=== PATIENT | male | born 1970 | race Two or more races ===

== ENCOUNTER 2022-05-22 15:11 | Inpatient (IN) | payer MEDICARE, OTHER ==
[~2022-05-22] VITALS: Ht 172.7 cm; Wt 74.8 kg
--- NOTE | 2022-05-22 15:43 | NUR ---
To ER bed 11, [id number] "Psych clearance/agitated and refusing meds", aaox2, breathing even and non labored, awaiting md dos santos
--- NOTE | 2022-05-22 16:09 | NUR ---
COVID SWAB DONE AND SENT TO LAB
[2022-05-22 16:17] LABS: HEMATOCRIT 38 % (39-51); HEMOGLOBIN 12.5 g/dL (13.5-17.5); LYMPHOCYTES # (AUTO) 2.5 K/uL (0.8-4.8); LYMPHOCYTES % (AUTO) 33.8 % (20.0-44.0); MEAN CORPUSCULAR HGB CONC 33 g/dl (31.0-36.0); MEAN CORPUSCULAR VOLUME 85 fL (80-96); MONOCYTES # (AUTO) 0.6 K/uL (0.1-1.30); MONOCYTES % (AUTO) 7.8 % (2.0-12.0); NEUTROPHILS # (AUTO) 4.4 K/uL (1.8-8.9); NEUTROPHILS % (AUTO) 58.4 % (43.0-81.0); PLATELET COUNT (AUTO) 196 K/uL (150-450); RED BLOOD CELL COUNT(AUTO) 4.52 MIL/uL (4.5-6.0); WHITE BLOOD COUNT (AUTO) 7.5 K/uL (4.3-11.0)
[2022-05-22 16:30] LABS: CARBON DIOXIDE 29 mmol/L (21-32); CHLORIDE 104 mmol/L (98-107); GLUCOSE 282 mg/dL (74-106); POTASSIUM 3.8 mmol/L (3.5-5.1); SODIUM SERUM 141 mmol/L (136-145); UREA NITROGEN, BLOOD 21 mg/dL (7-18)
--- NOTE | 2022-05-22 16:31 | NUR ---
URINE COLLECTED AND SENT TO LAB
[2022-05-22 16:36] LABS: ACETAMINOPHEN 0 ug/ml (10-30); ALANINE AMINOTRANSFERASE 38 U/L (12-78); ALBUMIN 3.8 g/dL (3.4-5.0); ALCOHOL, BLOOD < 3 mg/dL (0-0); ALKALINE PHOSPHATASE 99 U/L (46-116); ASPARTATE AMINOTRANSFERASE 29 U/L (15-37); BILIRUBIN,DIRECT 0.1 mg/dL (0.0-0.2); BILIRUBIN,TOTAL 0.4 mg/dL (0.2-1.0); TOTAL PROTEIN, SERUM 7.6 g/dL (6.4-8.2)
[2022-05-22 17:32] LABS: BILIRUBIN,URINE NEGATIVE (NEGATIVE); COLOR,URINE YELLOW (YELLOW); LEUKOCYTE ESTERASE ,URINE NEGATIVE (NEGATIVE); NITRITE, URINE NEGATIVE (NEGATIVE); PROTEIN,URINE NEGATIVE (NEGATIVE); UGLUCOSE 250 MG/DL mg/dL (NEGATIVE); UROBILINOGEN,URINE 0.2 EU/dL (0.2)
[2022-05-22 18:10] LABS: BACTERIA,URINE None seen /HPF (None Seen); RBC,URINE 21-50 /HPF (0-2); WBC,URINE 0-2 /HPF (0-3)
--- NOTE | 2022-05-22 18:32 | NUR ---
MOVE SHEET SUBMITTED.
--- NOTE | 2022-05-22 22:15 | NUR ---
REPORT GIVEN TO BRENDA BOTELLO
--- NOTE | 2022-05-22 22:16 | NUR ---
PATIENT TRANSFERRED TO [facility]
[2022-05-22] MEDS ORDERED: MAG HYDROX/AL HYDROX/SIMETH 30 ML UDC PO PRN ×2 (23:00→23:30)
[2022-05-22] MEDS ORDERED: ACETAMINOPHEN 325 MG TABLET PO PRN ×2 (23:00→23:30)
[2022-05-22] MEDS ORDERED: ZOLPIDEM TARTRATE 5 MG TABLET PO PRN (23:00)
[2022-05-22] MEDS ORDERED: MAGNESIUM HYDROXIDE 30 ML UDC PO PRN ×2 (23:00→23:30)
[2022-05-22 23:18] VITALS: BP 111/74
[2022-05-22] MEDS ORDERED: LORAZEPAM 1 MG TABLET PO PRN (23:30)
[2022-05-22] MEDS ORDERED: BLOOD SUGAR DIAGNOSTIC 1 EACH STRIP IN ONE ×2 (23:30)
[2022-05-22] MEDS ORDERED: LORAZEPAM 0.5 MG TABLET PO PRN (23:30)
--- NOTE | 2022-05-22 23:30 | NUR ---
GPS RN NOTE, PERFORMED ACCU CHECK ON PATIENT WITH A BLOOD SUGAR RESULT OF 171 AND NEEDS A MEDICATION RECONCILIATION. PAGED [facility] AND INFORMED DR CODRON OF MY FINDINGS. DR CORDON SAID HE WILL TAKE CARE OF MY FINDINGS SOON POSSIBLE.
[2022-05-23] MEDS ORDERED: OLAN10TA3 PO (00:56)
[2022-05-23] MEDS ORDERED: METF-440 PO (00:57)
[2022-05-23] MEDS ORDERED: CHLO10TA10 PO (00:58)
[2022-05-23] MEDS ORDERED: TRAZ-182 PO (00:59)
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
--- NOTE | 2022-05-23 02:58 | NUR ---
RN NOTE DR. LORENA CORDON WAS NOTIFIED ABOUT PATIENT'S MED RECON TO BE DONE. PER MD MED RECON WILL BE DONE IN AM.
--- NOTE | 2022-05-23 07:25 | NUR ---
RN NOTE: CALLED SALLY COREAS (PUBLIC GUARDIAN OFFICE) AT [phone] AND LEFT A VOICEMAIL REGARDING PATIENT'S ADMISSION AT [facility] UNIT.
--- NOTE | 2022-05-23 07:46 | NUR ---
RN NOTE PT RECEIVED AWAKE, VERBALLY RESPONSIVE. NOT IN DISTRESS. NOT WALKING AROUND THE HALLWAY. NO COMPLAINTS OF PAIN. SAFETY MAINTAINED. WILL CONTINUE TO MONITOR.
[2022-05-23 08:00] VITALS: BP 125/92
[2022-05-23] MEDS: OLANZAPINE 10 MG TABLET PO SCH ×2 (14:05→16:48)
[2022-05-23 16:00] VITALS: BP 137/78
[2022-05-23] MEDS: METFORMIN 500 MG TABLET PO SCH (16:48)
[2022-05-23] MEDS: DIVALPROEX SODIUM 500 MG TABLET.DR PO SCH (16:48)
--- NOTE | 2022-05-23 18:19 | NUR ---
RN NOTE PT RESTING IN BED, NOTED PACING IN HALLWAY, IN AND OUT IN ROOM AND IN DINING AREA. NOT IN DISTRESS, NO AGGRESSION, INAPPROPRIATE BEHAVIOR NOTED THIS SHIFT. COMPLIANT TO MEDICATIONS AND CARE. V/S STABLE. WILL CONTINUE TO MONITOR.
--- NOTE | 2022-05-23 19:15 | NUR ---
GPS RN NOTES RECEIVED PATIENT IN BED RESTING COMFORTABLY. A/OX1, NO S/SX OF ACUTE DISTRESS NOTED. PATIENT REMAINS CONFUSED, DISORGANIZED, PARANOID. NO VERBALIZATION OF THOUGHTS OR FEELINGS. SAFETY PRECAUTIONS MAINTAINED. WILL CONTINUE TO MONITOR Q15MIN ROUNDS FOR SAFETY AND BEHAVIOR.
[2022-05-23 20:57] VITALS: BP 111/64
[2022-05-23] MEDS: TEMAZEPAM 7.5 MG CAPSULE PO PRN (22:21)
[2022-05-24] MEDS: LORAZEPAM 0.5 MG TABLET PO PRN ×2 (03:05→12:23)
--- NOTE | 2022-05-24 05:45 | NUR ---
GPS RN NOTE, PATIENT IS POSTURING, IRRITABLE, AND THREATENING STAFF. PATIENT REDIRECTED BACK TO HIS ROOM. WILL CONTINUE TO MONITOR THE PATIENT WITH THE HELP OF STAFF.
--- NOTE | 2022-05-24 07:00 | NUR ---
GPS RN NOTES PATIENT IN THE DINING ROOM WATCHING TV. PATIENT REMAINS DISORGANIZED, LABILE MOOD AND CONFUSED. NO AGITATION NOTED AT THIS TIME. WILL ENDORSE TO DAY SHIFT NURSE FOR CONTINUITY OF CARE.
[2022-05-24 08:00] VITALS: BP 124/83
[2022-05-24] MEDS ORDERED: OLANZAPINE 10 MG VIAL IM STA (08:49)
[2022-05-24] MEDS ORDERED: LORAZEPAM INJ 2 MG/ML VIAL IM STA (08:49)
--- NOTE | 2022-05-24 08:52 | NUR ---
RN-CO: Patient is pacing, with a facial grimace, fists closed and posturing to staff. He refused all his morning medications including PO Ativan. Dr Delacruz was notified and ordered Zyprexa 10 mg IM and Ativan 2 mg IM stat. Patient also refused to follow redirections.
[2022-05-24] MEDS: OLANZAPINE 10 MG TABLET PO SCH ×2 (09:00→16:30)
[2022-05-24] MEDS: METFORMIN 500 MG TABLET PO SCH ×2 (09:00→16:30)
[2022-05-24] MEDS: DIVALPROEX SODIUM 500 MG TABLET.DR PO SCH ×2 (09:00→16:30)
--- NOTE | 2022-05-24 09:50 | NUR ---
RN NOTE- RX EFFECTIVE. PT CALMER
--- NOTE | 2022-05-24 11:03 | NUR ---
RN NOTE- AGITATED, PACING, POSTURING AND RESPONDING TO INTERNAL STIMULUS. PT REFUSED RX, REDIRECTION LIMITED
--- NOTE | 2022-05-24 12:23 | NUR ---
RN NOTE- ANXIETY PACING. ATIVAN 1 MG ADMINISTERED
[2022-05-24 14:56] LABS: HEMATOCRIT 38 % (39-51); HEMOGLOBIN 12.3 g/dL (13.5-17.5); LYMPHOCYTES # (AUTO) 2.7 K/uL (0.8-4.8); LYMPHOCYTES % (AUTO) 37.8 % (20.0-44.0); MEAN CORPUSCULAR HGB CONC 33 g/dl (31.0-36.0); MEAN CORPUSCULAR VOLUME 85 fL (80-96); MONOCYTES # (AUTO) 0.5 K/uL (0.1-1.30); MONOCYTES % (AUTO) 7.3 % (2.0-12.0); NEUTROPHILS # (AUTO) 3.9 K/uL (1.8-8.9); NEUTROPHILS % (AUTO) 54.9 % (43.0-81.0); PLATELET COUNT (AUTO) 184 K/uL (150-450); RED BLOOD CELL COUNT(AUTO) 4.46 MIL/uL (4.5-6.0); WHITE BLOOD COUNT (AUTO) 7.1 K/uL (4.3-11.0)
[2022-05-24 15:21] LABS: CALCIUM, SERUM 8.9 mg/dL (8.5-10.1); POTASSIUM 4.1 mmol/L (3.5-5.1)
[2022-05-24 16:00] VITALS: BP 128/73
[2022-05-24 20:24] VITALS: BP 122/80
[2022-05-25 08:00] VITALS: BP 107/85
[2022-05-25] MEDS: OLANZAPINE 10 MG TABLET PO SCH ×2 (08:53→17:46)
[2022-05-25] MEDS: METFORMIN 500 MG TABLET PO SCH ×2 (08:53→17:46)
[2022-05-25] MEDS: DIVALPROEX SODIUM 500 MG TABLET.DR PO SCH ×3 (08:53→17:46)
[2022-05-25] MEDS: LORAZEPAM 0.5 MG TABLET PO PRN ×2 (09:07→19:49)
--- NOTE | 2022-05-25 09:10 | NUR ---
NURSE NOTE: PT ANXIOUS AT THIS TIME. ATIVAN PO ADMINISTERED ORDERED. WILL CONT TO MONITOR.
--- NOTE | 2022-05-25 10:04 | NUR ---
CONSERVATOR: VIOLETA RECEIVED A CALL FROM PT'S LPS CONSERVATOR SALLY ([phone]) AND GUMARO VENEER GLUER ([phone]) REQUESTING TO TRANSFER PT TO [facility] ([phone]) AND SPOKE WITH LETICIA MCLAUGHLIN ([phone]) WHO STATED TO SEND THE REFERRAL PACKET. VIOLEAT FAXED H & P, PROGRESS NOTES, AND MEDICATION LIST.
--- NOTE | 2022-05-25 10:59 | NUR ---
VIOLETA Initial Discharge Note: Pt currently resides at [address] [address]; ). VIOLETA spoke with Jessica who stated that pt is not welcomed back and that pt would need another SNF. VIOLETA received a call from manager of case Caesar ([phone]) who stated that LPS conservator Aury ([phone]) who stated that she would want pt to be transfered to another [facility] facility inpatient in [place], VIOLETA spoke with alpa Vu from [facility] ([phone]) and faxed [phone]) clinicals for review. VIOLETA will work with the MD, conservator, and pt to help coordinate appropriate discharge.
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
--- NOTE | 2022-05-25 10:59 | NUR ---
Treatment Plan: Pt was psychotic and refused to sign treatment plan.
--- NOTE | 2022-05-25 11:00 | NUR ---
PATIENT SEEN BY DR. FRAZIER. IN STABLE CONDITION.
[2022-05-25] MEDS: BLOOD SUGAR DIAGNOSTIC 1 EACH STRIP IN SCH ×3 (12:16→22:47)
--- NOTE | 2022-05-25 13:20 | NUR ---
SEEN BY DR. MILIAN. IN STABLE CONDITION.
[2022-05-25] MEDS ORDERED: OLANZAPINE 5 MG TABLET PO PRN (13:30)
[2022-05-25 16:00] VITALS: BP 113/78
[2022-05-25] MEDS ORDERED: DEXTROSE 50%-WATER 50 ML DISP.SYRIN IV PRN (17:30)
--- NOTE | 2022-05-25 19:49 | NUR ---
RN NOTE: ANXIETY PATIENT NOTED TO BE VERY ANXIOUS, RESTLESS, EASILY AGITATED, PARANOID, TALKING TO HIMSELF AND NON REDIRECTABLE AT THIS TIME. PRN ATIVAN 1 MG PO GIVEN FOR PT. BEHAVIOR, WILL CONTINUE TO MONITOR FOR ANY CHANGES.
[2022-05-25] MEDS: INSULIN REGULAR, HUMAN 100 UNIT/ML 3 ML VIAL SQ PRN (22:48)
[2022-05-25 22:51] VITALS: BP 133/86
[2022-05-26] MEDS: TEMAZEPAM 7.5 MG CAPSULE PO PRN ×2 (00:33→23:58)
[2022-05-26 07:12] LABS: BASOPHILS % (AUTO) 0.1 % (0.0-2.0); HEMATOCRIT 41 % (39-51); HEMOGLOBIN 13.4 g/dL (13.5-17.5); LYMPHOCYTES # (AUTO) 2.7 K/uL (0.8-4.8); LYMPHOCYTES % (AUTO) 37.5 % (20.0-44.0); MEAN CORPUSCULAR HGB CONC 33 g/dl (31.0-36.0); MEAN CORPUSCULAR VOLUME 86 fL (80-96); MONOCYTES # (AUTO) 0.5 K/uL (0.1-1.30); MONOCYTES % (AUTO) 6.7 % (2.0-12.0); NEUTROPHILS % (AUTO) 55.7 % (43.0-81.0); PLATELET COUNT (AUTO) 189 K/uL (150-450); RED BLOOD CELL COUNT(AUTO) 4.81 MIL/uL (4.5-6.0); WHITE BLOOD COUNT (AUTO) 7.1 K/uL (4.3-11.0)
[2022-05-26 07:43] LABS: CALCIUM, SERUM 9.1 mg/dL (8.5-10.1); POTASSIUM 3.8 mmol/L (3.5-5.1)
[2022-05-26] MEDS: BLOOD SUGAR DIAGNOSTIC 1 EACH STRIP IN SCH ×4 (07:44→22:08)
[2022-05-26 07:53] LABS: BILIRUBIN,TOTAL 0.5 mg/dL (0.2-1.0); TOTAL PROTEIN, SERUM 8.1 g/dL (6.4-8.2)
[2022-05-26 08:00] VITALS: BP 161/117
[2022-05-26] MEDS: METFORMIN 500 MG TABLET PO SCH ×2 (08:01→16:35)
[2022-05-26] MEDS: DIVALPROEX SODIUM 500 MG TABLET.DR PO SCH ×3 (08:02→16:35)
[2022-05-26] MEDS: OLANZAPINE 10 MG TABLET PO SCH ×2 (08:02→16:35)
[2022-05-26] MEDS: INSULIN REGULAR, HUMAN 100 UNIT/ML 3 ML VIAL SQ PRN ×4 (10:45→22:08)
--- NOTE | 2022-05-26 13:03 | NUR ---
CONSERVATOR: VIOLETA FAXED LPS CONSERVATOR SALLY ([phone]) MED CONSENT AND DETAIN AND TREAT IN THE CHART.
[2022-05-26 16:11] VITALS: BP 139/90
--- NOTE | 2022-05-26 19:30 | NUR ---
GPS RN NOTES RECEIVED PT LYING IN BED COVERED WITH BLANKET, RESPONSIVE TO VERBAL STIMULI. A/O X1. NOT IN APPARENT DISTRESS. NO C/O PAIN OR DISCOMFORT. PT IS CONFUSED, DISORGANIZED, LABILE MOOD, DISORIENTED. APPEARS TO BE CALM AT THIS TIME. AMBULATORY W/ STEADY GAIT. SAFETY PRECAUTIONS IN PLACED. WILL CONTINUE TO MONITOR Q15MIN ROUNDS FOR SAFETY AND BEHAVIOR.
[2022-05-26 22:11] VITALS: BP 128/82
--- NOTE | 2022-05-27 00:34 | NUR ---
PT PACING ALONG THE HALLWAY INTERMITTENTLY. KEPT ASKING FOR FOOD EVEN HS SNACKS WERE PROVIDED. OFFERED PRN AMBIEN, TOLERATED WELL. WILL CONTINUE TO MONITOR.
[2022-05-27] MEDS: BLOOD SUGAR DIAGNOSTIC 1 EACH STRIP IN SCH ×3 (06:54→17:46)
[2022-05-27] MEDS: INSULIN REGULAR, HUMAN 100 UNIT/ML 3 ML VIAL SQ PRN ×3 (06:57→17:47)
[2022-05-27 08:00] VITALS: BP 112/81
[2022-05-27] MEDS: OLANZAPINE 10 MG TABLET PO SCH ×2 (08:46→17:45)
[2022-05-27] MEDS: METFORMIN 500 MG TABLET PO SCH ×2 (08:46→17:45)
[2022-05-27] MEDS: DIVALPROEX SODIUM 500 MG TABLET.DR PO SCH ×3 (08:46→17:45)
--- NOTE | 2022-05-27 11:25 | NUR ---
JESENIA PSYCH: [facility] Unit located at [address] [place] [address]; ([phone]) AND SPOKE WITH LISSETTE WHO STATED THAT PT IS ACCEPTED AND WAITING FOR PCR RESULTS.
--- NOTE | 2022-05-27 14:09 | NUR ---
JESENIA PSYCH: [facility] Unit located at [address] [place] [address]; ([phone]) and faxed pt's PCR. She is waiting to confirm with
--- NOTE | 2022-05-27 14:10 | NUR ---
CONSERVATOR: VIOLETA contacted LPS Conservator Aury ([phone]) and is aware of pt's acceptance to [facility] unit and she is agreeable of this.
--- NOTE | 2022-05-27 15:11 | NUR ---
SW Discharge Note: Patient will be transferred to [facility] Unit located at [address] [place] [id number]; ([phone]). Transportation is set through [employer] ([phone]) confirmed with Darren who stated sweet pickle maker will be between 7-8PM. Pts LPS conservator Aury ([phone]) is aware and agreeable. Pt denies suicidal or homicidal ideation. Pt denies visual/auditory hallucinations. Pt will be under the care of (Psychiatrist) Dr. Wade at [address] [place] [id number]; ([phone]). Pt presents with euthymic mood and congruent affect. Nursing report can be given at ([phone]).
--- NOTE | 2022-05-27 15:16 | NUR ---
Transportation: Transportation is set through [employer] ([phone]) confirmed with Darren who stated apple picking supervisor will be between 7-8PM.
[2022-05-27 16:00] VITALS: BP 117/84
--- NOTE | 2022-05-27 20:31 | NUR ---
GPS RN NOTES PATIENT DISCHARGED TO [facility] LATERAL TRANSFER. PATIENT IS IN STABLE CONDITION. COMPLIANT WITH MEDICATIONS, COOPERATIVE WITH TREATMENT PLANS. PATIENT DENIES SUICIDAL OR HOMICIDAL IDEATION. PATIENT DENIES VISUAL/AUDITORY HALLUCINATIONS. REPORT GIVEN TO BRENDA THOMAS. PATIENT DENIES PAIN OR DISCOMFORT. PATIENT WAS PICKED UP BY [employer] PROFESSIONAL.
== END 2022-05-27 20:38 | DRG 885 ==
LOC: ER 15:37 → GPS 18:54
PROVIDERS: ADMIT Psychiatry & Neurology Psychiatry; ATTEND Registered Nurse
DX: F25.9 Schizoaffective disorder, unspecified (principal); E11.65 Type 2 diabetes mellitus with hyperglycemia; Z59.00 Homelessness unspecified; E11.9 Type 2 diabetes mellitus without complications; F41.9 Anxiety disorder, unspecified; F43.10 Post-traumatic stress disorder, unspecified; X58.XXXA Exposure to other specified factors, initial encounter; Y92.9 Unspecified place or not applicable; Z73.6 Limitation of activities due to disability; R26.2 Difficulty in walking, not elsewhere classified; Z79.899 Other long term (current) drug therapy; Z79.84 Long term (current) use of oral hypoglycemic drugs; Z91.410 Personal history of adult physical and sexual abuse
CPT/HCPCS: 36415; 80048-TC; 80053-TC; 80061-TC; 80076-TC; 80164-TC; 81001; 82962-TC; 84443-TC; 85025-TC; 87081-TC; 97116-TC; 97530-TC; C9803; G0480; J1815; J2060; J3490; U0003